=== PATIENT | male | born 1950 ===

== ENCOUNTER 2016-09-16 07:20 | Day surgery (SDC) | payer MEDICARE ==
[2016-09-11 11:06] VITALS: BMI 31.9
[2016-09-16] MEDS ORDERED: Propofol 10 mg/ml Inj (20 ML) ONE (08:41)
[2016-09-16] MEDS ORDERED: Sodium Chloride 0.9% 1,000 ML IV SCH (09:30)
[2016-09-16 09:44] VITALS: RESP 16
[2016-09-16 10:10] VITALS: BP 135/72; PULSE 79; TEMP 97; O2SAT 97
== END 2016-09-16 11:20 | disposition home or self-care (01) ==
LOC: MERGE 07:20 → ENDO 07:20
PROVIDERS: ATTEND Internal Medicine
DX: C21.8 Malignant neoplasm of overlapping sites of rectum, anus and anal canal (principal)
CPT/HCPCS: 45341; J2001; J2704; J7040 ×2